=== PATIENT | female | born 1960 | race Caucasian/White ===

== ENCOUNTER → 2018-01-21 | Outpatient (CLI) | payer OTHER ==
--- NOTE | 2018-01-22 11:49 | MM ---
Reason for exam: screening (asymptomatic). Last mammogram was performed 2 years and 2 months ago. History: Benign US biopsy breast VAD RT of the right breast, November 28, 2015. Physical Findings: A clinical breast exam by your physician is recommended on an annual basis and results should be correlated with mammographic findings. MG 3D Screening Mammo W/Cad Bilateral CC and MLO view(s) were taken. Prior study comparison: November 28, 2015, right breast MG diagnostic mammo RT wo CAD. There are scattered fibroglandular densities. No significant changes when compared with prior studies. ASSESSMENT: Benign, BI-RAD 2 RECOMMENDATION: Routine screening mammogram of both breasts in 1 year.
== END | disposition home or self-care (01) ==
LOC: RADMAMWWP 10:03
PROVIDERS: ATTEND Family Medicine
DX: Z12.31 Encounter for screening mammogram for malignant neoplasm of breast (principal)
CPT/HCPCS: 77063; 77067